=== PATIENT | female | born 1980 | race Caucasian/White ===

== ENCOUNTER 2018-07-04 14:54 | Emergency (ER) | payer OTHER ==
[~2018-07-04] VITALS: Ht 162.6 cm; Wt 106.6 kg
[2018-07-04 15:15] VITALS: BP 147/84
[2018-07-04 16:55] LABS: INFLUENZA A PATIENT NEGATIVE (NEGATIVE); INFLUENZA B PATIENT NEGATIVE (NEGATIVE)
--- NOTE | 2018-07-04 17:24 | PHYS DOC ---
Past Medical History Past Medical History: UTI Additional Past Medical Histor: ovarian cyst,irregular mensus Past Surgical History: Other Additional Past Surgical Histo: Ovarian cyst,Toe procedure for ingrown nail, [place] teeth extracted. Alcohol Use: None Drug Use: None Adult General Chief Complaint Chief Complaint: Congestion HPI HPI Patient is a 37 year old female who presents with sore throat, headache, nasal congestion and facial pressure x 2 days. She denies earaches or SOA. She has not tried using OTC cold medications. She denies fever. Review of Systems Review of Systems Constitutional: Denies fever or chills [] Eyes: Denies change in visual acuity, redness, or eye pain [] HENT: See HPI Respiratory: See HPI Cardiovascular: No additional information not addressed in HPI [] GI: Denies abdominal pain, nausea, vomiting, bloody stools or diarrhea [] : Denies dysuria or hematuria [] Musculoskeletal: Denies back pain or joint pain [] Integument: Denies rash or skin lesions [] Neurologic: Denies headache, focal weakness or sensory changes [] Endocrine: Denies polyuria or polydipsia [] All other systems were reviewed and found to be within normal limits, except as documented in this note. Allergies Allergies Allergies Coded Allergies Type Severity Reaction Last Updated Verified Sulfa (Sulfonamide Antibiotics) Allergy Intermediate "Nervous, itch." 05/25/14 Yes Physical Exam Physical Exam Constitutional: Well developed, well nourished, no acute distress, non-toxic appearance. [] HENT: Normocephalic, atraumatic, bilateral tympanic membranes normal, oropharynx moist, no oral exudates, nares are erythematous with clear drainage [ ] Eyes: PERRLA, EOMI, conjunctiva normal, no discharge. [] Neck: Normal range of motion, no tenderness, supple, no stridor. [] Cardiovascular:Heart rate regular rhythm, no murmur [] Lungs & Thorax: Bilateral breath sounds clear to auscultation with no wheezes or rales [] Abdomen: Bowel sounds normal, soft, no tenderness, no masses, no pulsatile masses. [] Skin: Warm, dry, no erythema, no rash. [] Back: No tenderness, no CVA tenderness. [] Extremities: No tenderness, no cyanosis, no clubbing, ROM intact, no edema. [] Neurologic: Alert and oriented X 3, normal motor function, normal sensory function, no focal deficits noted. [] Psychologic: Affect normal, judgement normal, mood normal. [] Current Patient Data Vital Signs Vital Signs Date Time Temp Pulse Resp B/P (MAP) Pulse Ox O2 Delivery O2 Flow Rate FiO2 07/04/18 15:15 97.9 112 19 147/84 (105) 95 Room Air 97.9 Lab Values Laboratory Tests Test 07/04/18 15:50 Influenza Type A Antigen Negative (NEGATIVE) Influenza Type B Antigen Negative (NEGATIVE) EKG EKG [] Radiology/Procedures Radiology/Procedures [] Course & Med Decision Making Course & Med Decision Making Pertinent Labs and Imaging studies reviewed. (See chart for details) The patient's swabs were negative. Dragon Disclaimer Dragon Disclaimer This electronic medical record was generated, in whole or in part, using a voice recognition dictation system. Departure Departure Impression: Primary Impression: Upper respiratory infection Disposition: 01 HOME, SELF-CARE Condition: STABLE Referrals: Diogenes GOMEZ MD (PCP) Patient Instructions: Upper Respiratory Infection, Adult Additional Instructions: You may take [id number] cough and cold medications for symptom relief. Increase fluids and rest. Follow-up with your primary care provider not improving in 3 days. CLAUDINE VITAL APRN Jul 04, 2018 17:24
== END 2018-07-04 17:30 | disposition home or self-care (01) ==
LOC: ER 14:54
DX: J06.9 Acute upper respiratory infection, unspecified (principal); Z88.2 Allergy status to sulfonamides
CPT/HCPCS: 87804; 99283

== ENCOUNTER 2019-06-06 08:22 | Emergency (ER) | payer OTHER ==
[~2019-06-06 08:22] MED LIST: ALBU2.5V8 IH; BENZ100C PO
[2019-06-06 08:40] VITALS: BP 127/65
[2019-06-06] MEDS ORDERED: DOXY100C2 PO (08:41)
--- NOTE | 2019-06-06 09:12 | PHYS DOC ---
Past Medical History Past Medical History: UTI Additional Past Medical Histor: ovarian cyst,irregular mensus Past Surgical History: Other Additional Past Surgical Histo: Ovarian cyst,Toe procedure for ingrown nail,[place] teeth extracted. Alcohol Use: None Drug Use: None Adult General Chief Complaint Chief Complaint: FLU SYMPTOM HPI HPI Patient is a 38 year old female presenting with cough runny nose and sinus co ngestion occasionally she throws up when she coughs so much been going on 2 weeks occasional sputum production no shortness of breath. She was getting albuterol but is getting worse she wanted to come in to get checked out. No definite fever that she knows of. Symptoms are moderate slowly worsening with time using [id number] agents with minimal relief Review of Systems Review of Systems Constitutional: Cardiovascular: No additional information not addressed in HPI [] : Denies dysuria or hematuria [] Musculoskeletal: Denies back pain or joint pain [] Integument: Denies rash or skin lesions [] Neurologic: Denies headache, focal weakness or sensory changes [] Endocrine: Denies polyuria or polydipsia [] All other systems were reviewed and found to be within normal limits, except as documented in this note. Allergies Allergies Allergies Coded Allergies Type Severity Reaction Last Updated Verified Sulfa (Sulfonamide Antibiotics) Allergy Intermediate "Nervous, itch." 05/25/14 Yes Physical Exam Physical Exam Constitutional: Well developed, well nourished, no acute distress, non-toxic jaden earance. [] HENT: Normocephalic, atraumatic, bilateral external ears normal, oropharynx moist, no oral exudates, nose normal. []Mild bilateral sinus tenderness Eyes: PERRLA, EOMI, conjunctiva normal, no discharge. [] Neck: Normal range of motion, no tenderness, supple, no stridor. [] Cardiovascular:Heart rate regular rhythm, no murmur [] Lungs & Thorax: Bilateral breath sounds clear to auscultation [] Abdomen: Bowel sounds normal, soft, no tenderness, no masses, no pulsatile masses. [] Skin: Warm, dry, no erythema, no rash. [] Back: No tenderness, no CVA tenderness. [] Extremities: No tenderness, no cyanosis, no clubbing, ROM intact, no edema. [] Neurologic: Alert and oriented X 3, normal motor function, normal sensory function, no focal deficits noted. [] Psychologic: Affect normal, judgement normal, mood normal. [] Current Patient Data Vital Signs Vital Signs Date Time Temp Pulse Resp B/P (MAP) Pulse Ox O2 Delivery O2 Flow Rate FiO2 06/06/19 08:40 97.4 76 16 127/65 (85) 98 Room Air 97.4 EKG EKG [] Radiology/Procedures Radiology/Procedures [] Course & Med Decision Making Course & Med Decision Making Pertinent Labs and Imaging studies reviewed. (See chart for details) []Normal vital signssignificant past medical history presenting with greater than 2 weeks now of upper respiratory symptoms perhaps there is bacterial overgrowth sinusitis abx prescription was provided patient is very well- appearing at discharge in stable condition return precautions discussed Dragon Disclaimer Dragon Disclaimer This electronic medical record was generated, in whole or in part, using a voice recognition dictation system. Departure Departure Impression: Primary Impression: Sinusitis Disposition: HOME, SELF-CARE Condition: STABLE Referrals: Diogenes GOMEZ MD (PCP) Patient Instructions: Sinusitis, [id number] Scripts Doxycycline Hyclate (DOXYCYCLINE HYCLATE) 100 Mg Capsule 1 CAP PO BID, #14 CAP Prov: MONIQUE BRAND MD 06/06/19 MONIQUE BRAND MD Jun 06, 2019 09:12
== END 2019-06-06 09:16 | disposition home or self-care (01) ==
LOC: ER 08:22
DX: J32.9 Chronic sinusitis, unspecified (principal); Z88.2 Allergy status to sulfonamides
CPT/HCPCS: 99283

== ENCOUNTER 2019-07-28 10:49 | Emergency (ER) | payer OTHER ==
[~2019-07-28] VITALS: Ht 162.6 cm; Wt 113.6 kg
[~2019-07-28 10:49] MED LIST changes: +DOXY100C2 PO
[2019-07-28] MEDS ORDERED: MECLIZINE HCL 12.5 MG TABLET. PO ONE (12:30)
[2019-07-28] MEDS ORDERED: IV NORMAL SALINE 1000ML BAG 1,000 ML IV ONE (12:30)
[2019-07-28 12:40] LABS: BASO % 0 % (0-3); EOS # 0.3 x10^3/uL (0.0-0.7); EOS % 3 % (0-3); HEMATOCRIT 38.8 % (36.0-47.0); HEMOGLOBIN 12.4 g/dL (12.0-15.5); LYMPH # 1.8 x10^3/uL (1.0-4.8); LYMPH % 21 % (24-48); MEAN CORPUSCULAR HEMOGLOBIN 26 pg (25-35); MEAN CORPUSCULAR HGB CONC 32 g/dL (31-37); MEAN CORPUSCULAR VOLUME 81 fL (79-100); MONO # 0.3 x10^3/uL (0.0-1.1); MONO % 4 % (0-9); NEUT # 6.3 x10^3/uL (1.8-7.7); NEUT % 72 % (31-73); PLATELET COUNT 233 x10^3/uL (140-400); RED BLOOD COUNT 4.81 x10^6/uL (3.50-5.40); RED CELL DISTRIBUTION WIDTH 15.9 % (11.5-14.5); WHITE BLOOD COUNT 8.7 x10^3/uL (4.0-11.0)
[2019-07-28 12:49] LABS: BARBITURATES NEG (NEG); BENZODIAZEPINES NEG (NEG); CANNABINOIDS NEG (NEG); COCAINE NEG (NEG); METHADONE NEG (NEG); OPIATES NEG (NEG); PHENCYCLIDINE NEG (NEG)
[2019-07-28 12:50] LABS: AMPHETAMINE/METHAMPHETAMINE NEG (NEG)
--- NOTE | 2019-07-28 12:51 | RAD ---
EXAM: PORTABLE CHEST 1V INDICATION: Dizziness. TECHNIQUE: Single AP view COMPARISON: 05/25/2014 chest x-ray FINDINGS: The heart size is normal. The great vessels appear unremarkable. There is no hilar or mediastinal mass. The lungs are clear. There is no pleural effusion or pneumothorax. There are no significant osseous abnormalities. IMPRESSION: No active cardiopulmonary disease. Electronically signed by: Izaiah Branch MD (07/28/2019 12:48 PM) [id number]
[2019-07-28 12:54] LABS: CALCIUM 8.9 mg/dL (8.5-10.1); CREATININE 0.8 mg/dL (0.6-1.0); GFR 81.2; POTASSIUM 3.9 mmol/L (3.5-5.1)
[2019-07-28 13:00] LABS: ALBUMIN 2.9 g/dL (3.4-5.0); ALBUMIN/GLOBULIN RATIO 0.7 (1.0-1.7); TOTAL BILIRUBIN 0.3 mg/dL (0.2-1.0); TOTAL PROTEIN 7.3 g/dL (6.4-8.2)
[2019-07-28 13:15] LABS: CREATINE KINASE 60 U/L (26-192)
[2019-07-28 13:30] VITALS: BP 128/77
[2019-07-28] MEDS ORDERED: MUPI22OI2 TP (13:49)
[2019-07-28] MEDS ORDERED: MECL12.573 PO (13:49)
--- NOTE | 2019-07-28 13:50 | PHYS DOC ---
Past Medical History Past Medical History: UTI, Other Additional Past Medical Histor: ovarian cyst,irregular mensus Past Surgical History: Other Additional Past Surgical Histo: Ovarian cyst,Toe procedure for ingrown nail,[place] teeth extracted. Smoking Status: Never Smoker Alcohol Use: None Drug Use: None Adult General Chief Complaint Chief Complaint: MULTIPLE COMPLAINTS HPI HPI Patient is a 38 year old female who presents to the ED today complaining of sores on her abdomen for 4 to 5 months. Patient denies any drainage from the areas. Patient is also complaining of occasional episodes of dizziness for unknown period of time. Patient denies anything exacerbating the dizziness. Denies any chest pain, shortness of breath. Reports history of prediabetes. Review of Systems Review of Systems Constitutional: Denies fever or chills [] Eyes: Denies change in visual acuity, redness, or eye pain [] HENT: Denies nasal congestion or sore throat [] Respiratory: Denies cough or shortness of breath [] Cardiovascular: No additional information not addressed in HPI [] GI: Denies abdominal pain, nausea, vomiting, bloody stools or diarrhea [] : Denies dysuria or hematuria [] Musculoskeletal: Denies back pain or joint pain [] Integument: Reports sores on the abdomen Neurologic: Reports dizziness. Denies headache, focal weakness or sensory changes [] All other systems were reviewed and found to be within normal limits, except as documented in this note. Current Medications Current Medications Current Medications Medications (Trade) Dose Ordered Sig/Ervin Start Time Stop Time Status Last Admin Dose Admin Meclizine HCl (Antivert) 12.5 mg 1X ONCE 07/28/19 12:30 07/28/19 12:31 DC 07/28/19 12:30 12.5 MG Sodium Chloride 1,000 ml @ 1,000 mls/hr 1X ONCE 07/28/19 12:30 07/28/19 13:29 DC 07/28/19 12:30 1,000 MLS/HR Allergies Allergies Allergies Coded Allergies Type Severity Reaction Last Updated Verified Sulfa (Sulfonamide Antibiotics) Allergy Intermediate "Nervous, itch." 05/25/14 Yes Physical Exam Physical Exam Constitutional: Well developed, well nourished, no acute distress, non-toxic appearance. [] HENT: Normocephalic, atraumatic, bilateral external ears normal, oropharynx moist, no oral exudates, nose normal. [] Eyes: PERRLA, EOMI, conjunctiva normal, no discharge. [] Neck: Normal range of motion, no tenderness, supple, no stridor. [] Cardiovascular:Heart rate regular rhythm, no murmur [] Lungs & Thorax: Bilateral breath sounds clear to auscultation [] Abdomen: Bowel sounds normal, soft, no tenderness, no masses, no pulsatile masses. [] Skin: Warm, dry, abdomen with roughly 4-5 open nondraining wounds. Back: No tenderness, no CVA tenderness. [] Extremities: No tenderness, no cyanosis, no clubbing, ROM intact, no edema. [] Neurologic: Alert and oriented X 3, normal motor function, normal sensory function, no focal deficits noted. Cranial nerves II through XII intact Psychologic: Affect normal, judgement normal, mood normal. [] Current Patient Data Vital Signs Vital Signs Date Time Temp Pulse Resp B/P (MAP) Pulse Ox O2 Delivery O2 Flow Rate FiO2 07/28/19 11:30 97.8 90 15 132/70 (90) 95 Room Air 97.8 Lab Values Laboratory Tests Test 07/28/19 11:31 07/28/19 11:51 07/28/19 12:00 POC Urine HCG, Qualitative Hcg negative (Negative) White Blood Count 8.7 x10^3/uL (4.0-11.0) Red Blood Count 4.81 x10^6/uL (3.50-5.40) Hemoglobin 12.4 g/dL (12.0-15.5) Hematocrit 38.8 % (36.0-47.0) Mean Corpuscular Volume 81 fL (79-100) Mean Corpuscular Hemoglobin 26 pg (25-35) Mean Corpuscular Hemoglobin Concent 32 g/dL (31-37) Red Cell Distribution Width 15.9 % (11.5-14.5) H Platelet Count 233 x10^3/uL (140-400) Neutrophils (%) (Auto) 72 % (31-73) Lymphocytes (%) (Auto) 21 % (24-48) L Monocytes (%) (Auto) 4 % (0-9) Eosinophils (%) (Auto) 3 % (0-3) Basophils (%) (Auto) 0 % (0-3) Neutrophils # (Auto) 6.3 x10^3/uL (1.8-7.7) Lymphocytes # (Auto) 1.8 x10^3/uL (1.0-4.8) Monocytes # (Auto) 0.3 x10^3/uL (0.0-1.1) Eosinophils # (Auto) 0.3 x10^3/uL (0.0-0.7) Basophils # (Auto) 0.0 x10^3/uL (0.0-0.2) Sodium Level 141 mmol/L (136-145) Potassium Level 3.9 mmol/L (3.5-5.1) Chloride Level 104 mmol/L (98-107) Carbon Dioxide Level 29 mmol/L (21-32) Anion Gap 8 (6-14) Blood Urea Nitrogen 7 mg/dL (7-20) Creatinine 0.8 mg/dL (0.6-1.0) Estimated GFR (Cockcroft-Gault) 81.2 BUN/Creatinine Ratio 9 (6-20) Glucose Level 115 mg/dL (70-99) H Calcium Level 8.9 mg/dL (8.5-10.1) Magnesium Level 2.0 mg/dL (1.8-2.4) Total Bilirubin 0.3 mg/dL (0.2-1.0) Aspartate Amino Transferase (AST) 13 U/L (15-37) L Alanine Aminotransferase (ALT) 17 U/L (14-59) Alkaline Phosphatase 83 U/L (46-116) Creatine Kinase 60 U/L (26-192) Creatine Kinase MB (Mass) < 0.5 ng/mL (0.0-3.6) Creatine Kinase MB Relative Index % (0-4) Troponin I Quantitative < 0.017 ng/mL (0.000-0.055) UR-Hxp-W-Type Natriuretic Peptide 84 pg/mL (0-124) Total Protein 7.3 g/dL (6.4-8.2) Albumin 2.9 g/dL (3.4-5.0) L Albumin/Globulin Ratio 0.7 (1.0-1.7) L Thyroid Stimulating Hormone (TSH) 1.939 uIU/mL (0.358-3.74) Urine Opiates Screen Neg (NEG) Urine Methadone Screen Neg (NEG) Urine Barbiturates Neg (NEG) Urine Phencyclidine Screen Neg (NEG) Urine Amphetamine/Methamphetamine Neg (NEG) Urine Benzodiazepines Screen Neg (NEG) Urine Cocaine Screen Neg (NEG) Urine Cannabinoids Screen Neg (NEG) Urine Ethyl Alcohol Neg (NEG) Laboratory Tests 07/28/19 11:51 Laboratory Tests 07/28/19 11:51 EKG EKG [address] Wise sinus rhythm heart rate 92 no STEMI [] Radiology/Procedures Radiology/Procedures []PROCEDURE: PORTABLE CHEST 1V EXAM: PORTABLE CHEST 1V INDICATION: Dizziness. TECHNIQUE: Single AP view COMPARISON: 05/25/2014 chest x-ray FINDINGS: The heart size is normal. The great vessels appear unremarkable. There is no hilar or mediastinal mass. The lungs are clear. There is no pleural effusion or pneumothorax. There are no significant osseous abnormalities. IMPRESSION: No active cardiopulmonary disease. Electronically signed by: Crow Branch MD (07/28/2019 12:48 PM) [id number] DICTATED and SIGNED BY: CROW BRANCH MD DATE: 07/28/19 1248 Course & Med Decision Making Course & Med Decision Making Pertinent Labs and Imaging studies reviewed. (See chart for details) This is a 38-year-old female patient presenting to the ED today complaining of sores on her abdomen for 4 to 5 months. The sores do not appear infected. Patient was given prescription for Bactroban. Tetanus was updated. Patient was also complaining of dizziness for unknown period of time. EKG is negative, labs are negative, chest x-ray is negative. Discharge to home with meclizine as needed. Follow-up with PCP in 1 to 2 weeks. Dragon Disclaimer Dragon Disclaimer This electronic medical record was generated, in whole or in part, using a voice recognition dictation system. Departure Departure Impression: Primary Impression: Dizziness Additional Impression: Open abdominal wall wound Disposition: HOME, SELF-CARE Condition: STABLE Referrals: Diogenes GOMEZ MD (PCP) follow up in 1-2 weeks Patient Instructions: Dizziness, [id number] Additional Instructions: Please use the prescribed cream for your abdominal sores Please take the prescribed medicine as needed for dizziness. Please follow-up with your doctor in 1 to 2 weeks. Scripts Mupirocin (MUPIROCIN OINTMENT) 22 Gm Oint...g. 1 ALEX TP TID for WOUND CARE, #1 TUBE Prov: MUKESH LUIS APRN 07/28/19 Meclizine Hcl (MECLIZINE HCL) 12.5 Mg Tablet 1 TAB PO TID, #30 TAB 3 Refills Prov: MUKESH LUIS APRN 07/28/19 Problem Qualifiers Additional Impression: Open abdominal wall wound Encounter type: initial encounter Qualified Codes: S31.109A - Unspecified open wound of abdominal wall, unspecified quadrant without penetration into peritoneal cavity, initial encounter MUKESH LUIS APRN Jul 28, 2019 13:50
--- NOTE | 2019-07-28 20:15 | EKG ---
[facility] [address] [place] [address] Test Date: 2019-07-28 Test Time: 11:39:40 Pat Name: BILL LAUGHLIN Department: Room: Gender: F Technical Support Intern: : 1980 Requested By: MUKESH LUIS Order Number: [id number] Reading MD: Measurements Intervals [place] Rate: 92 P: 7 ME: 130 QRS: -15 QRSD: 78 T: 24 QT: 360 QTc: 450 Interpretive Statements SINUS RHYTHM LEFTWARD AXIS NO SPECIFIC ECG ABNORMALITIES RI6.01 No previous ECG available for comparison
== END 2019-07-28 14:35 | disposition home or self-care (01) ==
LOC: ER 10:49
DX: S31.109A Unspecified open wound of abdominal wall, unspecified quadrant without penetration into peritoneal cavity, initial encounter (principal); R42 Dizziness and giddiness; Z88.2 Allergy status to sulfonamides; X58.XXXA Exposure to other specified factors, initial encounter; Y93.89 Activity, other specified; Y92.89 Other specified places as the place of occurrence of the external cause; Y99.8 Other external cause status
CPT/HCPCS: 36415; 71045; 80053; 80307; 81025; 82553; 83735; 83880; 84443; 84484; 85025; 93005; 96360; 99285; J7030; J8597